=== PATIENT | male | born 1970 | race Caucasian/White ===

== ENCOUNTER 2016-06-12 12:46 | Emergency (ER) | payer MEDICAID ==
[2016-06-12] MEDS ORDERED: Morphine 2 MG/ML Syringe IVPUSH ONE ×2 (13:05→14:37)
[2016-06-12] MEDS ORDERED: Ondansetron 4 MG/2 ML SDV IVPUSH ONE (13:05)
[2016-06-12] MEDS ORDERED: Sodium Chloride 0.9% 1,000 ML IV SCH (13:15)
[2016-06-12] MEDS ORDERED: Iopamidol 755 Mg/ML 100 ML Bottle IV ONE (13:20)
--- NOTE | 2016-06-12 13:23 | EDM.PDOC ---
ED HPI Trauma - General Stated Complaint: KNEE PAIN Time Seen by Provider: 06/12/16 12:46 Source: Reports: Patient, Family History Limitations: Reports: Physical impairment - History of Present Illness INITIAL COMMENTS - FREE TEXT/NARRATIVE: 46 years old w m came to the ed due to r knee pain,swelling unable to bent, sudden. Pt had partial knee replacement 2 days (06/10/2016), pt denied trauma, did not apply weight to knee,did not overextend or bent it. Took vicodin, did not help Temp was 98.7 on arrival. Symptom Onset Date: 06/12/16 Symptom Onset Time: 05:00 Occurred When: this morning Occurred Where: home Method of Injury: other (S/P partial knee replacememnt 06/10/2016) Severity: moderate Pain/Injury Location: Reports: lower extremity, right Allergies/ADRs: Allergies No Known Allergies Allergy (Verified 06/12/16 13:45) Home Medications: Ambulatory Orders Escitalopram [Lexapro] 20 mg PO DAILY 07/22/13 [Confirmed 06/12/16] Social & Family History - Tobacco Use Years of Tobacco use: 20 Used Tobacco, but Quit: No Second Hand Smoke Exposure: No - Alcohol Use Days Per Week of Alcohol Use: 2 Number of Drinks Per Day: 2 Total Drinks Per Week: 4 - Recreational Drug Use Recreational Drug Use: Yes Drug Use in Last 12 Months: Yes Recreational Drug Type: Reports: Marijuana/Hashish Recreational Drug Last Use: 10/27/13 Review of Systems - Review of Systems Review Of Systems: See Below Constitutional: Reports: no symptoms, other (pain) Eyes: Reports: no symptoms Ears: Reports: no symptoms Nose: Reports: no symptoms Mouth/Throat: Reports: no symptoms Respiratory: Reports: no symptoms Cardiovascular: Reports: no symptoms GI/Abdominal: Reports: No symptoms Genitourinary: Reports: no symptoms Musculoskeletal: Reports: joint swelling (r knee) Skin: Reports: no symptoms Neurological: Reports: no symptoms Psychiatric: Reports: no symptoms Trauma Exam - Physical Exam Exam: See Below Exam Limited By: Physical impairment General Appearance: Reports: alert, WD/WN, moderate distress, obese Head: Reports: atraumatic, normocephalic Eyes: bilateral eye: EOMI, normal inspection, PERRL Ears: Reports: normal external exam, normal canal, hearing grossly normal, normal TMs Nose: Reports: normal inspection, normal mucousa, no blood Throat/Mouth: Reports: Other (dry mucosal membrane) Neck: Reports: non-tender, full range of motion, normal alignment, normal inspection Respiratory Exam: Reports: no respiratory distress, lungs clear, normal breath sounds Cardiovascular: Reports: normal peripheral pulses, regular rate, rhythm, no edema, no gallop, no JVD, no murmur, no rub GI/Abdominal: Reports: normal bowel sounds, soft, non tender, no organomegaly, no distention, no abnormal bruit, no mass (Male) Exam: No hernia, Normal inspection Rectal (Males) Exam: Deferred Back: Reports: full range of motion, normal inspection, non-tender Extremities: Reports: joint effusion (r knee), pain with movement, tenderness, unable to bear weight Neurologic: Reports: psychopaedic nurse II-XII nml as tested, no motor/sensory deficits, alert , normal mood/affect, oriented x 3 - [place] Coma Score Best Eye Response ([place]): (4) open spontaneously Best Verbal Response (Martha): (5) oriented Best Motor Response (Martha): (6) obeys commands [place] Total: 15 Course - Vital Signs Text/Narrative:: 46 years old w m came to the ed due to r knee pain,swelling unable to bent, sudden. Pt had partial knee replacement 2 days (06/10/2016), pt denied trauma, did not apply weight to knee,did not overextend or bent it. Took vicodin, did not help Temp was 98.7 on arrival. no thigh of groin pain PE: "hot joint" r knee, unable to bet or extent r knee, hot to touch, swollen. No pain or swelling of calf and thigh. surgical wound intact/healing Imaging: Air fluid level in r knee joint: DDx Post op, septic joint, cellulitis as per Radiologist Labs: WBC 23K Lactic acid 3.3 Blood Cx drawn, results pending Impression: Septic joint, s/p partial r knee replacement Consultation: Dr. Cordova, Ortho: Most likely post OP, do not tap r knee joint, Transfer to [place] ED to see Ortho specialist Tx: Ice to r knee, Morphin, Fentanyl, Rocephin 1 gra, Vancomycin 1.5 gm` Consultation: Dr. Polanco EDMD: Accepted the pt for further care, will consult ortho as soon pt arrives Reexam: improved Plan: Transfer to [place] ED Last Recorded V/S: Last Vital Signs Temp 36.4 C 06/12/16 12:50 Pulse 94 06/12/16 12:50 Resp 22 H 06/12/16 12:50 BP 164/89 H 06/12/16 12:50 Pulse Ox 100 06/12/16 12:50 - Orders/Labs/Meds Labs: Laboratory Tests 06/12/16 06/12/16 06/12/16 Range/Units 13:25 13:25 13:25 WBC 23.9 H (4.5-12.0) X10-3/uL RBC 4.71 (4.30-5.75) x10(6)uL Hgb 14.5 (11.5-15.5) g/dL Hct 42.4 (30.0-51.3) % MCV 89.9 (80-96) fL MCH 30.8 (27.7-33.6) pg MCHC 34.2 (32.2-35.4) g/dL RDW 13.2 (11.5-15.5) % Plt Count 362 (125-369) X10(3)uL MPV 6.9 L (7.4-10.4) fL Add Manual Diff Yes Neutrophils % (Manual) 80 (46-82) % Lymphocytes % (Manual) 15 (13-37) % Monocytes % (Manual) 5 (4-12) % Sodium 137 (135-145) mmol/L Potassium 3.4 L (3.5-5.3) mmol/L Chloride 102 (100-110) mmol/L Carbon Dioxide 23 (23-29) mmol/L BUN 19 (5-20) mg/dL Creatinine 0.9 (0.6-1.3) mg/dL Est Cr Clr Drug Dosing TNP Estimated GFR (MDRD) > 60 (>60) BUN/Creatinine Ratio 21.1 H (9-20) Glucose 106 (80-116) mg/dL Lactic Acid 3.3 H (0.5-2.2) mmol/L Calcium 9.0 (8.6-10.2) mg/dL Meds: Medications Discontinued Medications Generic Name Dose Route Start Last Admin Trade Name Freq PRN Reason Stop Dose Admin Fentanyl 50 mcg 06/12/16 14:55 06/12/16 15:06 Sublimaze IVPUSH 06/12/16 14:56 50 mcg ONETIME ONE Administration Sodium Chloride 1,000 mls @ 125 mls/hr 06/12/16 13:15 06/12/16 13:10 Normal Saline IV 125 mls/hr ASDIRECTED YEFRI Administration Ceftriaxone Sodium 1 gm/ 50 mls @ 200 mls/hr 06/12/16 14:08 06/12/16 14:39 Sodium Chloride IV 06/12/16 14:22 200 mls/hr ONETIME ONE Administration Vancomycin HCl 1 gm/ 500 mls @ 250 mls/hr 06/12/16 15:00 06/12/16 15:21 Vancomycin HCl 500 mg/ Sodium IV 06/12/16 16:59 250 mls/hr Chloride ONETIME ONE Administration Iopamidol 100 ml 06/12/16 13:20 06/12/16 13:50 Isovue-370 (76%) IV 06/12/16 13:21 100 ml . DIRECTED ONE Administration Morphine Sulfate 2 mg 06/12/16 13:05 06/12/16 13:20 Morphine IVPUSH 06/12/16 13:06 2 mg ONETIME ONE Administration Morphine Sulfate 2 mg 06/12/16 14:37 Morphine IVPUSH 06/12/16 14:38 ONETIME ONE Ondansetron HCl 8 mg 06/12/16 13:05 06/12/16 13:21 Zofran IVPUSH 06/12/16 13:06 8 mg ONETIME ONE Administration Departure - Departure Time of Disposition: 20:09 Disposition: DC/Tfer to Acute Hospital 02 Condition: fair Clinical Impression: Knee pain, acute Qualifiers: Laterality: right Qualified Code(s): M25.561 - Pain in right knee Referrals: Nagi Franklin MD [Primary Care Provider] - Forms: ED Department Discharge
[2016-06-12 13:57] VITALS: BP 164/89
[2016-06-12] MEDS ORDERED: cefTRIAXone 1 GM in Sodium Chloride 0.9% 50 ML IV ONE (14:08)
[2016-06-12] MEDS ORDERED: fentaNYL 100 MCG/2 ML SDV IVPUSH ONE (14:55)
--- NOTE | 2016-06-12 14:55 | CT ---
INDICATION: Status post partial knee replacement 2 days ago, edema, swelling, question abscess. CT LOWER EXTREMITY: Spiral 2.5-mm axial sections were obtained through the knees bilaterally with sagittal and coronal reconstructions of the right knee, revealing a knee joint effusion with air in the joint. Findings may be on the basis of septic joint. This should be correlated clinically in this post surgical patient, however. There is also air in the soft tissues which could be on the basis of gas-forming organism infection and/or postsurgical change and should be correlated clinically. Additionally, interstitial edema is present in the soft tissues, also on the right, which may be post surgical and/ or due to superficial infection - cellulitis. Again, these findings should be correlated clinically. A tap of the large knee joint effusion should be of further diagnostic benefit. Evidence of a medial hemiarthroplasty is noted. No definite complicating process was identified within the bony structures. Report was called to Dr. Gonzalez at 1415 hours, 06/12/2016. PREET
[2016-06-12] MEDS ORDERED: Vancomycin 1 GM, Vancomycin 500 MG in Sodium Chloride 0.9% 500 ML IV ONE (15:00)
== END 2016-06-12 16:25 ==
LOC: FB.ED 12:46
DX: M25.561 Pain in right knee (principal); Z79.899 Other long term (current) drug therapy
CPT/HCPCS: 36415; 73701; 80048; 83605; 85025; 87040; 96361; 96365; 96375; 99284; J0696; J2270; J2405; J3010; J3370; J7040; J7050; Q9967

== ENCOUNTER → 2022-02-24 | Day surgery (SDC) | payer MEDICAID ==
[~2022-02-24] MED LIST: Bupivacaine 0.5% 50 ML MDV INJECT ONE; Dexamethasone 4 MG/ML 5 ML MDV IVPUSH ONE; Ketamine 500 mg/10 ML MDV IV ONE; Ketorolac 30 MG/ML SDV IVPUSH ONE; Lactated Ringers 1,000 ML IV SCH; Lidocaine 1% with EPINEPHrine 1:100,000 20 ML MDV INJECT ONE; Midazolam 1 MG/ML 2 ML SDV IV ONE; Ondansetron 4 MG/2 ML SDV IVPUSH ONE; Propofol 200 MG/20 ML SDV IV ONE; Sodium Chloride 0.9% 10 ML Syringe FLUSH PRN; ceFAZolin 1 GM Vial IVPUSH ONE; ceFAZolin 1 GM in Sodium Chloride 0.9% 50 ML IV ONE; fentaNYL 100 MCG/2 ML SDV IV ONE
[2022-02-24 09:23] VITALS: BP 109/72; PULSE 73
== END | disposition home or self-care (01) ==
LOC: FB.SDS 06:07
PROVIDERS: ATTEND Surgery
DX: K40.91 Unilateral inguinal hernia, without obstruction or gangrene, recurrent (principal); F17.210 Nicotine dependence, cigarettes, uncomplicated; F32.A Depression, unspecified; Z90.49 Acquired absence of other specified parts of digestive tract; Z96.651 Presence of right artificial knee joint; Z98.890 Other specified postprocedural states
CPT/HCPCS: 00830-QZ; C1781; J0690; J1100; J1885; J2250; J2405; J2704; J3010; J3490; J7120